=== PATIENT | female | born 1975 | race Caucasian/White ===

== ENCOUNTER 2017-08-14 06:47 | Day surgery (SDC) | payer OTHER ==
[~2017-08-14] VITALS: Ht 152.4 cm; Wt 98.0 kg
[~2017-08-14 06:47] MED LIST: ATOR40TA PO; Aspir 8181 MG PO; BENZ100A PO; BP MED; CEPH500 PO; CYCL10 PO; Cephalexin250 MG/5 M PO; Cyclobenzaprine5 MG PO; DIPATR PO; Dulcolax5 MG PR; GLIP10 PO; GLIP5 PO; GLIP5ER PO; GLYB1.5 PO; GLYB5 PO; HYDACE5 PO; Humalog100 UNIT/1 PO; IBUP400 PO; IBUP800 PO; INSR10I SC; INSU7030P SC; Kristalose20 GM PO; Lantus100 UNIT/1 SQ; METF500 PO; METF500C PO; MISO200 PO; NAPR550 PO; Naprosyn500 MG PO; Norco 5-325 Ta1 EACH PO; OXYACE5T PO; PIOG30 PO; PRED20 PO; PROACE100 PO; PROGESTERONE; PROM25 PO; PROP10 PO; Pseudoephedrine30 MG PO; RXONDA4ODT MM; RXOXYACE PO
[2017-08-14] MEDS ORDERED: GLIM2 PO (07:05)
[2017-08-14] MEDS ORDERED: FARXIGA10 MG PO (07:05)
[2017-08-14] MEDS ORDERED: Desyrel50 MG (07:06)
== END 2017-08-14 09:14 | disposition home or self-care (01) ==
LOC: ORSCSDS 06:47
PROVIDERS: Orthopaedic Surgery
PROC: 01N50ZZ Release Median Nerve, Open Approach (ICD-10-PCS; principal; 2017-08-14 08:15)
DX: G56.01 Carpal tunnel syndrome, right upper limb (principal); E11.9 Type 2 diabetes mellitus without complications; F31.9 Bipolar disorder, unspecified; Z79.4 Long term (current) use of insulin; Z79.899 Other long term (current) drug therapy
CPT/HCPCS: 82947; J2250; J7120

== ENCOUNTER 2018-03-02 22:57 | Emergency (ER) | payer OTHER ==
[~2018-03-02] VITALS: Ht 152.4 cm; Wt 90.7 kg
[~2018-03-02 22:57] MED LIST changes: +Desyrel50 MG; +FARXIGA10 MG PO; +GLIM2 PO
[2018-03-02 23:44] LABS: Source, Urine Clean Catch
[2018-03-02 23:48] LABS: Appearance, Urine Hazy (Clear); Bilirubin, Urine Neg (Neg); Blood, Urine 5+ (Neg); Color, Urine Yellow (P-Yellow); Glucose Qualitative, Urine 4+ (Neg); Ketones, Urine Neg (Neg); Leukocyte Esterase, Urine 3+ (Neg); Nitrite, Urine Neg (Neg); Protein, Urine 2+ (Neg); Urobilinogen, Urine NORM (Normal)
[2018-03-03 00:05] LABS: White Blood Cells, Urine 25-50 /hpf (0-5)
[2018-03-03 00:06] LABS: Bacteria Mod /hpf; Red Blood Cells, Urine TNTC /hpf (0-2); Squamous Epithelial Cells Few /hpf (Few)
[2018-03-03] MEDS ORDERED: CEPH500 PO (00:19)
[2018-03-03] MEDS ORDERED: Pyridium200 MG PO (00:19)
== END 2018-03-03 00:35 | disposition home or self-care (01) ==
LOC: ER 22:57
PROVIDERS: Emergency Medicine
DX: N39.0 Urinary tract infection, site not specified (principal); E11.9 Type 2 diabetes mellitus without complications; Z79.899 Other long term (current) drug therapy
CPT/HCPCS: 81001; 87077; 87086; 87186; 99283

== ENCOUNTER 2018-11-29 21:30 | Emergency (ER) | payer OTHER ==
[~2018-11-29 21:30] MED LIST changes: +Pyridium200 MG PO
== END 2018-11-29 22:15 | disposition left against medical advice (07) ==
LOC: ER 21:30
DX: Z53.21 Procedure and treatment not carried out due to patient leaving prior to being seen by health care provider (principal)

== ENCOUNTER → 2018-12-01 | Outpatient (CLI) | payer OTHER ==
[2018-12-01 17:31] LABS: Candida species (DNA Probe) Negative (NEGATIVE); G. vaginalis (DNA Probe) Negative (NEGATIVE); T. vaginalis (DNA Probe) Negative (NEGATIVE)
== END | disposition home or self-care (01) ==
LOC: LAB 15:50 → LAB SHORT 15:50
PROVIDERS: Family Medicine
DX: N89.8 Other specified noninflammatory disorders of vagina (principal)
CPT/HCPCS: 87480; 87510; 87660

== ENCOUNTER 2019-03-10 08:56 | Day surgery (SDC) | payer BC, OTHER ==
[~2019-03-10 08:56] MED LIST changes: +BASAGLAR K100 UNIT/2 SC
[2019-03-10 10:16] LABS: BASOPHILS ABSOLUTE AUTO 0.04 K/mm3 (0.00-0.23); BASOPHILS PERCENT AUTO 1 % (0-2); EOSINOPHILS PERCENT AUTO 1 % (0-6); Hematocrit 46.9 % (33.0-51.0); Hemoglobin 15.3 g/dL (11.5-16.0); IMMATURE GRAN ABSOLUTE AUTO 0.02 K/mm3 (0.00-0.10); IMMATURE GRAN PERCENT AUTO 0 % (0-1); LYMPHOCYTES ABSOLUTE AUTO 2.05 K/mm3 (0.84-5.20); LYMPHOCYTES PERCENT AUTO 27 % (21-46); MONOCYTES ABSOLUTE AUTO 0.44 K/mm3 (0.16-1.47); MONOCYTES PERCENT AUTO 6 % (4-13); Mean Corpuscular HGB 29.8 pg (26.0-34.0); Mean Corpuscular HGB Conc 32.6 g/dL (31.5-36.5); Mean Corpuscular Volume 91 fL (80-100); Mean Platelet Volume 11.4 fL (9.1-12.4); NEUTROPHILS ABSOLUTE AUTO 4.93 K/mm3 (1.96-9.15); NEUTROPHILS PERCENT AUTO 65 % (41-73); Platelet Count 291 K/mm3 (150-400); RDW Coefficient Variation 12.4 % (11.7-14.2); RDW Standard Deviation 41.4 fL (35.1-46.3); Red Blood Cell Count 5.14 M/mm3 (3.80-5.20); White Blood Cell Count 7.58 K/mm3 (4.00-11.30)
[2019-03-10 10:29] LABS: Alanine Aminotransfer (ALT/SGP 19 U/L (12-78); Albumin, Blood 3.7 g/dL (3.4-5.0); Alk Phos 110 U/L (50-136); Anion Gap 8 mmol/L (6-16); Aspartate Aminotrans (AST/SGOT 12 U/L (12-37); Bilirubin, Total 0.4 mg/dL (0.1-1.0); Blood Urea Nitrogen 11 mg/dL (8-24); Bun/Creatinine Ratio 18.4 (12.0-20.0); CO2, Blood 28 mmol/L (21-32); Calcium, Blood 8.8 mg/dL (8.5-10.1); Chloride, Blood 106 mmol/L (98-108); Globulin, Blood 3.6 g/dL (2.2-4.0); Glomerular Filtration Rate >60 (60-); Glucose, Blood 203 mg/dL (70-99); Potassium, Blood 3.7 mmol/L (3.5-5.5); Sodium, Blood 142 mmol/L (136-145); Total Protein, Blood 7.3 g/dL (6.4-8.2)
== END 2019-03-10 22:45 | disposition home or self-care (01) ==
LOC: PRE 08:56 → EDSTATUS 09:17 → PRE 22:45
PROVIDERS: Family Medicine; Obstetrics & Gynecology
DX: E78.5 Hyperlipidemia, unspecified (principal); E11.65 Type 2 diabetes mellitus with hyperglycemia; R94.31 Abnormal electrocardiogram [ECG] [EKG]; Z79.4 Long term (current) use of insulin; Z79.899 Other long term (current) drug therapy
CPT/HCPCS: 36415; 80053; 83036; 84702; 85025; 93005; 93010

== ENCOUNTER 2019-03-12 05:46 | Day surgery (SDC) | payer BC, OTHER ==
[~2019-03-12] VITALS: Ht 152.4 cm; Wt 90.3 kg
--- NOTE | 2019-03-12 06:47 | NUR ---
History, Chart, Medications and Allergies reviewed before start of procedure. Patient confirms NPO status and agrees with scheduled surgery. Lungs clear T/O to Auscultation. Pre-Op teaching done. Pt verbalizes understanding. Patient reports completing Chlorhexadine shower X2 prior to admission to hospital. NO JEWELRY, CONTACTS, GLASSES OR DENTURES AT ADMIT.
--- NOTE | 2019-03-12 07:24 | NUR ---
DR WONDERLY AWARE OF PCN AMD AMOXICILLIN ALLERGY, NO NEW ORDERS RECEIVED.
--- NOTE | 2019-03-12 11:37 | NUR ---
TRANSFER TO FROM PACU TO SURGICAL PT ARRIVED FROM PACU TO SURGICAL FLOOR AT 1103 TODAY VIA GURNEY. A&O BUT SLEEPY WITH VSS. SPO2 AT 97% ON RA, ABLE TO COUGH AND TAKE DEEP BREATHS WITH ENCOURAGEMENT. LUNGS CL. ABD GAUZE DRESSINGS 4X C/D/I WITH NO DRAINAGE NOTED. HAS SCANT VAGINAL BLEEDING ON ZARA PAD. C/O NAUSEA UPON ARRIVAL BUT REPORTS IT IS STARTING TO DECREASE. CURRENTLY ABLE TO TOLERATE SIPS OF CL. BLE PAS IN PLACE. MAGANA CATH PATENT AND DRAINING CL YELLOW URINE. DEMONSTRATED AND VERBALIZED ABILITY TO USE CALL LIGHT. PT IS CURRENTLY RESTING IN BED WITH CALL LIGHT IN HAND. WILL CONT TO MONITOR.
--- NOTE | 2019-03-12 13:10 | NUR ---
PT RESTING IN BED WITH SPOUSE AT BEDSIDE. A&O W/VSS ON RA. ABD DRESSING 4X C/D/I, SCANT VAGINAL BLEEDING NOTED. ABLE TO TOLERATE CL AND CRACKERS. MEDICATED 1X WITH 2 OXYCODONE AND REPOSITIONED PRN. HAS CALL LIGHT IN HAND AND IVF RUNNING. WILL CONT TO MONITOR.
--- NOTE | 2019-03-12 18:30 | NUR ---
SHIFT SUMMARY POD 0 ROBOTIC VAGINAL HYSTER. PT A&O WITH VSS. ABD DRESSINGS 4X C/D/I WITH NO DRAINAGED NOTED. SCANT VAGINAL BLEEDING. PT TOLERATING REGULAR DIET, AMBULATING IND IN ROOM/HALLWAYS, AND REPORTS PAIN WELL CONTROLLED WITH PO MEDICATIONS. DOCTOR NOTIFIED OF CBG 0F 221, NO NEW ORDERS OBTAINED. PAS IN PLACE. MAGANA REMOVED THIS AFTERNOON, PT VOIDING WITHOUT DIFFICULTY. IS CURRENTLY UP IN CHAIR VISITING WITH FAMILY WITH CALL LIGHT WITHIN REACH. PLAN FOR D/C TOMORROW. WILL CONT TO MONITOR AND GIVE REPORT TO ONCOMING RN.
--- NOTE | 2019-03-12 19:02 | NUR ---
WONDERLY IN TO SEE PT AT THIS TIME
[2019-03-13 04:39] LABS: BASOPHILS ABSOLUTE AUTO 0.04 K/mm3 (0.00-0.23); BASOPHILS PERCENT AUTO 0 % (0-2); EOSINOPHILS ABSOLUTE AUTO 0.02 K/mm3 (0.00-0.68); EOSINOPHILS PERCENT AUTO 0 % (0-6); Hematocrit 36.3 % (33.0-51.0); Hemoglobin 11.8 g/dL (11.5-16.0); IMMATURE GRAN ABSOLUTE AUTO 0.03 K/mm3 (0.00-0.10); IMMATURE GRAN PERCENT AUTO 0 % (0-1); LYMPHOCYTES PERCENT AUTO 17 % (21-46); MONOCYTES ABSOLUTE AUTO 0.85 K/mm3 (0.16-1.47); MONOCYTES PERCENT AUTO 6 % (4-13); Mean Corpuscular HGB 30.3 pg (26.0-34.0); Mean Corpuscular HGB Conc 32.5 g/dL (31.5-36.5); Mean Corpuscular Volume 93 fL (80-100); Mean Platelet Volume 11.5 fL (9.1-12.4); NEUTROPHILS PERCENT AUTO 76 % (41-73); Platelet Count 248 K/mm3 (150-400); RDW Coefficient Variation 12.8 % (11.7-14.2); RDW Standard Deviation 43.8 fL (35.1-46.3); Red Blood Cell Count 3.89 M/mm3 (3.80-5.20); White Blood Cell Count 13.24 K/mm3 (4.00-11.30)
--- NOTE | 2019-03-13 04:45 | NUR ---
SHIFT SUMMARY POD 1 LAP ASSIST VAG HYSTER. PT AAOX4 VSS. PATIENT TOLERATING PO WELL. PT UP AND AMBULATING INDEPENDENTLY IN ROOM AND HALLWAYS. PT HAS BEEN VOIDING AND DRINKING FLUIDS. MEDICATED FOR PAIN PER EMAR, TOLERATED WELL. SCANT DRAINING ON LAP SITES.
[2019-03-13] MEDS ORDERED: DOCU100 PO (11:15)
[2019-03-13] MEDS ORDERED: Milk Of Ma400 MG/5 M PO (11:16)
[2019-03-13] MEDS ORDERED: Percocet 5-3251 EACH PO (11:17)
[2019-03-13] MEDS ORDERED: SIME80CH PO (11:18)
[2019-03-13] MEDS ORDERED: PROM25 PO (11:18)
[2019-03-13] MEDS ORDERED: IBUP800 PO (11:19)
--- NOTE | 2019-03-13 11:37 | NUR ---
DC INSTRUCTIONS GIVEN, VERBALIZED UNDERSTANDING.
== END 2019-03-13 11:39 | disposition home or self-care (01) ==
LOC: ORSCMMR 05:46 → ORD 07:30 → SURS 11:16 → ORSCMMR 03-13 11:39
PROVIDERS: Obstetrics & Gynecology
PROC: 8E0W4CZ Robotic Assisted Procedure of Trunk Region, Percutaneous Endoscopic Approach (ICD-10-PCS; principal; 2019-03-12 07:30)
PROC: 0UT7FZZ Resection of Bilateral Fallopian Tubes, Via Natural or Artificial Opening With Percutaneous Endoscopic Assistance (ICD-10-PCS; principal; 2019-03-12 07:30)
PROC: 0UT9FZZ Resection of Uterus, Via Natural or Artificial Opening With Percutaneous Endoscopic Assistance (ICD-10-PCS; principal; 2019-03-12 07:30)
DX: N92.1 Excessive and frequent menstruation with irregular cycle (principal); N94.6 Dysmenorrhea, unspecified; N94.10 Unspecified dyspareunia; R10.2 Pelvic and perineal pain; N72 Inflammatory disease of cervix uteri; E11.40 Type 2 diabetes mellitus with diabetic neuropathy, unspecified; Z79.4 Long term (current) use of insulin; E66.01 Morbid (severe) obesity due to excess calories; Z68.39 Body mass index [BMI] 39.0-39.9, adult; Z79.899 Other long term (current) drug therapy
CPT/HCPCS: 58552; S2900; 36415; 82947; 85025; 86850; 86900; 86901; 88307; J0690; J1100; J1650; J1885; J2250; J2370; J2405; J2704; J3010; J7050; J7120

== ENCOUNTER → 2020-07-10 | Outpatient (CLI) | payer SELFPAY ==
[~2020-07-10] MED LIST changes: +DOCU100 PO; +Milk Of Ma400 MG/5 M PO; +ONDA4ODT MM; +PHENA200 PO; +Percocet 5-3251 EACH PO; +SIME80CH PO
[2020-07-10 11:09] LABS: Candida species (DNA Probe) Negative (NEGATIVE); G. vaginalis (DNA Probe) Positive (NEGATIVE); T. vaginalis (DNA Probe) Negative (NEGATIVE)
== END ==
LOC: LAB SHORT 09:40 → LAB 10:03
PROVIDERS: Physician Assistant
DX: R30.0 Dysuria (principal); N89.8 Other specified noninflammatory disorders of vagina
CPT/HCPCS: 87077; 87086; 87186; 87480; 87510; 87660

== ENCOUNTER 2020-09-25 05:44 | Emergency (ER) | payer SELFPAY ==
[~2020-09-25] VITALS: Ht 152.4 cm; Wt 86.2 kg
[~2020-09-25 05:44] MED LIST changes: -ONDA4ODT MM; -PHENA200 PO
[2020-09-25 06:00] LABS: Source, Urine Clean Catch
[2020-09-25 06:03] LABS: Appearance, Urine Hazy (Clear); Bilirubin, Urine Neg (Neg); Blood, Urine 5+ (Neg); Color, Urine Yellow (P-Yellow); Glucose Qualitative, Urine 4+ (Neg); Ketones, Urine 2+ (Neg); Leukocyte Esterase, Urine 3+ (Neg); Nitrite, Urine Pos (Neg); Protein, Urine 2+ (Neg); Specific Gravity, Urine 1.015 (1.003-1.022); Urobilinogen, Urine NORM (Normal)
[2020-09-25 06:09] LABS: Bacteria Mod /hpf; Red Blood Cells, Urine TNTC /hpf (0-2); Squamous Epithelial Cells Rare /hpf (Few); White Blood Cells, Urine 50-100 /hpf (0-5)
[2020-09-25] MEDS ORDERED: PHENA200 PO (06:16)
[2020-09-25] MEDS ORDERED: CEPH500 PO (06:16)
[2020-09-25] MEDS ORDERED: ONDA4ODT MM (06:16)
== END 2020-09-25 06:27 | disposition home or self-care (01) ==
LOC: ER 05:44
PROVIDERS: Student in an Organized Health Care Education/Training Program
DX: N39.0 Urinary tract infection, site not specified (principal); R11.0 Nausea; Z87.891 Personal history of nicotine dependence; Z88.5 Allergy status to narcotic agent; Z88.2 Allergy status to sulfonamides; Z88.0 Allergy status to penicillin; Z79.4 Long term (current) use of insulin
CPT/HCPCS: 51798; 81001; 87077; 87086; 87186; 99283-25; A9270

== ENCOUNTER 2021-06-05 07:32 | Emergency (ER) | payer BC ==
[~2021-06-05] VITALS: Ht 152.4 cm; Wt 84.8 kg
[~2021-06-05 07:32] MED LIST changes: +CODACE30 PO; +ONDA4ODT MM; +PHENA200 PO
[2021-06-05 08:19] LABS: Source, Urine Clean Catch
[2021-06-05 08:28] LABS: Appearance, Urine Clear (Clear); Bilirubin, Urine Neg (Neg); Blood, Urine Neg (Neg); Color, Urine Yellow (P-Yellow); Glucose Qualitative, Urine 4+ (Neg); Ketones, Urine 3+ (Neg); Leukocyte Esterase, Urine Neg (Neg); Nitrite, Urine Neg (Neg); Protein, Urine Neg (Neg); Specific Gravity, Urine 1.015 (1.003-1.022); Urobilinogen, Urine NORM (Normal)
[2021-06-05] MEDS ORDERED: Reglan10 MG PO (09:44)
== END 2021-06-05 10:03 | disposition home or self-care (01) ==
LOC: ER 07:32
PROVIDERS: Physician Assistant
DX: K59.00 Constipation, unspecified (principal); Z88.1 Allergy status to other antibiotic agents; Z88.5 Allergy status to narcotic agent; Z88.0 Allergy status to penicillin; Z88.8 Allergy status to other drugs, medicaments and biological substances
CPT/HCPCS: 74022; 81003; 99283-25; A9270

== ENCOUNTER 2021-07-31 21:37 | Emergency (ER) | payer BC ==
[~2021-07-31] VITALS: Ht 152.4 cm; Wt 84.8 kg
[~2021-07-31 21:37] MED LIST changes: +Reglan10 MG PO
[2021-07-31 21:52] LABS: Source, Urine Clean Catch
[2021-07-31 21:59] LABS: Appearance, Urine Hazy (Clear); Bilirubin, Urine Neg (Neg); Blood, Urine 5+ (Neg); Color, Urine Yellow (P-Yellow); Glucose Qualitative, Urine 4+ (Neg); Ketones, Urine 1+ (Neg); Leukocyte Esterase, Urine 3+ (Neg); Nitrite, Urine Pos (Neg); Protein, Urine 2+ (Neg); Urobilinogen, Urine 1+ (Normal)
[2021-07-31 22:29] LABS: Bacteria Many /hpf; Squamous Epithelial Cells Few /hpf (Few); White Blood Cells, Urine 50-100 /hpf (0-5)
[2021-08-01] MEDS ORDERED: CIPRO500 M1 PO (00:46)
== END 2021-08-01 00:54 | disposition home or self-care (01) ==
LOC: ER 21:37
PROVIDERS: Physician Assistant
DX: N10 Acute pyelonephritis (principal); E11.9 Type 2 diabetes mellitus without complications; I10 Essential (primary) hypertension; Z88.0 Allergy status to penicillin; Z88.5 Allergy status to narcotic agent; Z79.4 Long term (current) use of insulin; Z79.899 Other long term (current) drug therapy
CPT/HCPCS: 81001; 87077; 87086; 87186; 99283; A9270

== ENCOUNTER → 2021-10-01 | Outpatient (CLI) | payer BC ==
[~2021-10-01] MED LIST changes: +CIPRO500 M1 PO
== END | disposition home or self-care (01) ==
LOC: LAB SHORT 12:15 → LAB 12:15
DX: N39.0 Urinary tract infection, site not specified (principal)
CPT/HCPCS: 87086

== ENCOUNTER → 2021-10-17 | Outpatient (CLI) | payer BC | END | disposition home or self-care (01) | LOC: LAB SHORT 11:45 → LAB 11:45 | DX: R10.2 Pelvic and perineal pain (principal) | CPT/HCPCS: 87086 ==

== ENCOUNTER → 2021-11-13 | Outpatient (CLI) | payer BC | END | disposition home or self-care (01) | LOC: LAB SHORT 16:00 → LAB 16:00 | DX: R30.0 Dysuria (principal) | CPT/HCPCS: 87086 ==

== ENCOUNTER → 2022-04-09 | Outpatient (CLI) | payer BC ==
[~2022-04-09] MED LIST changes: +MAGCIT300 PO; +Magic Bullet10 MG PR
== END ==
LOC: LAB SHORT 11:20 → LAB 11:20
DX: N39.0 Urinary tract infection, site not specified (principal)
CPT/HCPCS: 87086

== ENCOUNTER → 2022-04-30 | Outpatient (CLI) | payer BC | END | disposition home or self-care (01) | LOC: LAB SHORT 17:00 | DX: N39.0 Urinary tract infection, site not specified (principal) | CPT/HCPCS: 87086 ==

== ENCOUNTER → 2022-09-12 | Outpatient (CLI) | payer BC | LOC: LAB SHORT 08:30 → LAB 08:30 | DX: J02.9 Acute pharyngitis, unspecified (principal) | CPT/HCPCS: 87077; 87086; 87186 ==

== ENCOUNTER 2022-12-25 09:10 | Emergency (ER) | payer BC ==
[~2022-12-25] VITALS: Ht 152.4 cm; Wt 82.5 kg
[2022-12-25 11:54] LABS: BASOPHILS ABSOLUTE AUTO 0.06 K/mm3 (0.00-0.23); BASOPHILS PERCENT AUTO 1 % (0-2); EOSINOPHILS ABSOLUTE AUTO 0.07 K/mm3 (0.00-0.68); EOSINOPHILS PERCENT AUTO 1 % (0-6); Hemoglobin 15.5 g/dL (11.5-16.0); IMMATURE GRAN ABSOLUTE AUTO 0.02 K/mm3 (0.00-0.10); IMMATURE GRAN PERCENT AUTO 0 % (0-1); LYMPHOCYTES ABSOLUTE AUTO 1.92 K/mm3 (0.84-5.20); LYMPHOCYTES PERCENT AUTO 25 % (21-46); MONOCYTES ABSOLUTE AUTO 0.41 K/mm3 (0.16-1.47); MONOCYTES PERCENT AUTO 5 % (4-13); Mean Corpuscular HGB 30.5 pg (26.0-34.0); Mean Corpuscular HGB Conc 34.4 g/dL (31.5-36.5); Mean Corpuscular Volume 88 fL (80-100); Mean Platelet Volume 10.8 fL (9.1-12.4); NEUTROPHILS ABSOLUTE AUTO 5.11 K/mm3 (1.96-9.15); NEUTROPHILS PERCENT AUTO 67 % (41-73); Platelet Count 257 K/mm3 (150-400); RDW Coefficient Variation 11.8 % (11.7-14.2); RDW Standard Deviation 38.1 fL (35.1-46.3); Red Blood Cell Count 5.09 M/mm3 (3.80-5.20); White Blood Cell Count 7.59 K/mm3 (4.00-11.30)
[2022-12-25 12:14] LABS: Albumin, Blood 3.6 g/dL (3.4-5.0); Albumin/Globulin Ratio 0.9 (0.8-1.8); Bilirubin, Direct 0.1 mg/dL (0.0-0.3); Bilirubin, Indirect 0.4 mg/dL (0.1-0.7); Bilirubin, Total 0.5 mg/dL (0.1-1.0); Calcium, Blood 8.6 mg/dL (8.5-10.1); Creatinine, Blood 0.5 mg/dL (0.40-1.00); Globulin, Blood 3.8 g/dL (2.2-4.0); Magnesium, Blood 2.3 mg/dL (1.6-2.4); Potassium, Blood 4.2 mmol/L (3.5-5.5); Total Protein, Blood 7.4 g/dL (6.4-8.2)
[2022-12-25 12:45] VITALS: BP 129/92
== END 2022-12-25 15:14 | disposition home or self-care (01) ==
LOC: ER 09:10
PROVIDERS: Student in an Organized Health Care Education/Training Program
DX: K59.09 Other constipation (principal); E11.65 Type 2 diabetes mellitus with hyperglycemia; I10 Essential (primary) hypertension
CPT/HCPCS: 74018; 74177; 80048; 80076; 83690; 83735; 85025; 96374; 99284-25; A9270; J2405; Q9967

== ENCOUNTER → 2023-03-13 | Outpatient (CLI) | payer BC | END | disposition home or self-care (01) | LOC: LAB SHORT 15:22 → LAB 15:22 | DX: R30.0 Dysuria (principal) | CPT/HCPCS: 87086 ==

== ENCOUNTER 2023-08-02 20:32 | Emergency (ER) | payer BC ==
[~2023-08-02] VITALS: Ht 152.4 cm; Wt 76.2 kg
[2023-08-02 21:24] LABS: BASOPHILS ABSOLUTE AUTO 0.06 K/mm3 (0.00-0.23); BASOPHILS PERCENT AUTO 1 % (0-2); EOSINOPHILS PERCENT AUTO 1 % (0-6); Hemoglobin 14.6 g/dL (11.5-16.0); IMMATURE GRAN ABSOLUTE AUTO 0.02 K/mm3 (0.00-0.10); IMMATURE GRAN PERCENT AUTO 0 % (0-1); LYMPHOCYTES ABSOLUTE AUTO 3.33 K/mm3 (0.84-5.20); LYMPHOCYTES PERCENT AUTO 38 % (21-46); MONOCYTES PERCENT AUTO 6 % (4-13); Mean Corpuscular HGB 30.4 pg (26.0-34.0); Mean Corpuscular Volume 90 fL (80-100); Mean Platelet Volume 10.5 fL (9.1-12.4); NEUTROPHILS ABSOLUTE AUTO 4.72 K/mm3 (1.96-9.15); NEUTROPHILS PERCENT AUTO 54 % (41-73); Platelet Count 300 K/mm3 (150-400); RDW Coefficient Variation 11.8 % (11.7-14.2); RDW Standard Deviation 38.5 fL (35.1-46.3); White Blood Cell Count 8.73 K/mm3 (4.00-11.30)
[2023-08-02 21:42] LABS: Albumin, Blood 3.7 g/dL (3.4-5.0); Bilirubin, Total 0.3 mg/dL (0.1-1.0); Bun/Creatinine Ratio 26.4 (12.0-20.0); Calcium, Blood 9.3 mg/dL (8.5-10.1); Creatinine, Blood 0.45 mg/dL (0.40-1.00); Globulin, Blood 3.8 g/dL (2.2-4.0); Potassium, Blood 3.8 mmol/L (3.5-5.5); Total Protein, Blood 7.5 g/dL (6.4-8.2)
[2023-08-02 22:39] VITALS: BP 147/101
[2023-08-02] MEDS ORDERED: BISA5EC PO (23:15)
== END 2023-08-02 23:24 | disposition home or self-care (01) ==
LOC: ER 20:32
PROVIDERS: Physician Assistant
DX: K59.00 Constipation, unspecified (principal); E11.9 Type 2 diabetes mellitus without complications; Z88.0 Allergy status to penicillin; Z88.5 Allergy status to narcotic agent; Z79.899 Other long term (current) drug therapy; Z79.4 Long term (current) use of insulin
CPT/HCPCS: 74022; 80053; 85025; 87086; 99284-25

== ENCOUNTER → 2024-01-16 | Outpatient (CLI) | payer OTHER ==
[~2024-01-16] MED LIST changes: +BISA5EC PO
== END | disposition home or self-care (01) ==
LOC: LAB SHORT 13:49 → LAB 13:49
DX: N39.0 Urinary tract infection, site not specified (principal)
CPT/HCPCS: 87086

== ENCOUNTER 2024-10-26 15:50 | Emergency (ER) | payer OTHER ==
[~2024-10-26] VITALS: Ht 152.4 cm; Wt 79.8 kg
[2024-10-26 16:03] VITALS: BP 126/78
[2024-10-26] MEDS ORDERED: CEPH500 PO (17:08)
== END 2024-10-26 17:20 | disposition home or self-care (01) ==
LOC: ER 15:50
DX: L02.416 Cutaneous abscess of left lower limb (principal); E11.9 Type 2 diabetes mellitus without complications; Z79.4 Long term (current) use of insulin; Z59.89 Other problems related to housing and economic circumstances
CPT/HCPCS: 10160; 99282-25; A9270